=== PATIENT | male | born 1970 | race Hispanic/Latino ===

== ENCOUNTER 2016-12-02 18:15 | Emergency (ER) | payer MEDICAID ==
--- NOTE | 2016-12-02 19:51 | C.PDOC ---
History Of Present Illness 46 y/o male sent from [facility] to ED requesting detox from ETOH, Xanax and cocaine. Patient states he last used 3 days ago and denies any physical complaints at this time. Time Seen by Provider: 12/02/16 19:18 Chief Complaint (Nursing): Substance Abuse History Per: Patient History/Exam Limitations: no limitations Onset/Duration Of Symptoms: Days Current Symptoms Are (Timing): Still Present Suicide/Self Injury Attempted (Context): None Modifying Factor(s): Alcohol, Cocaine Past Medical History Reviewed: Historical Data, Nursing Documentation, Vital Signs Vital Signs: Last Vital Signs Temp 98.1 F 12/02/16 18:30 Pulse 89 12/02/16 18:30 Resp 20 12/02/16 18:30 BP 126/84 12/02/16 18:30 Pulse Ox 96 12/02/16 21:33 - Medical History PMH: Anxiety, Depression, Seizures Surgical History: No Surg Hx Family History: States: No Known Family Hx - Social History Hx Alcohol Use: No Hx Substance Use: Yes - Immunization History Hx Tetanus Toxoid Vaccination: No Hx Influenza Vaccination: No Hx Pneumococcal Vaccination: No Review Of Systems Except As Marked, All Systems Reviewed And Found Negative. Constitutional: Negative for: Fever, Chills Cardiovascular: Negative for: Chest Pain Respiratory: Negative for: Shortness of Breath Gastrointestinal: Negative for: Nausea, Vomiting Skin: Negative for: Rash Neurological: Negative for: Weakness, Numbness Physical Exam - Physical Exam Appears: Other (Anxious, Tremulous) Skin: Normal Color, Warm, Dry, No Rash Head: Atraumatic, Normacephalic Eye(s): bilateral: Normal Inspection, EOMI Oral Mucosa: Moist Neck: Normal ROM, Supple Chest: Symmetrical Cardiovascular: Rhythm Regular, No Murmur Respiratory: Normal Breath Sounds, No Rales, No Rhonchi, No Wheezing Gastrointestinal/Abdominal: Soft, No Tenderness, No Guarding, No Rebound Extremity: Normal ROM, Capillary Refill (<2 second) Neurological/Psych: Oriented x3 ED Course And Treatment - Laboratory Results Result Diagrams: 12/02/16 19:52 12/02/16 19:52 Lab Interpretation: Abnormal (cocaine only +) O2 Sat by Pulse Oximetry: 96 (RA) Pulse Ox Interpretation: Normal Progress Note: Depakote 500 mg, Librium 50 mg PO Reevaluation Time: 21:31 Reassessment Condition: Improved - Physician Consult Information Outcome Of Conversation: seen by Crisis Evaluators- does not meet critera for Detox adm Medical Decision Making Medical Decision Makin:Discussed with Crisis and beds are available [id number]: safe for d/c. Disposition Doctor Will See Patient In The: Office Counseled Patient/Family Regarding: Studies Performed, Diagnosis - Disposition Referrals: [facility] [Outside] [facility] [Outside] [facility] [Outside] [facility] [Outside] Disposition: HOME/ ROUTINE Disposition Time: 21:32 Condition: GOOD Additional Instructions: follow-up with outpatient services as described. Prescriptions: Gabapentin 300 mg PO BID #14 capsule Levetiracetam [Keppra] 500 mg PO BID #30 tablet Instructions: Cocaine Abuse (ED) Forms: [employer] (Algerian) - Clinical Impression Clinical Impression: Drug dependence, Cocaine abuse - Scribe Statement The provider has reviewed the documentation as recorded by the Calibjatin Pink All medical record entries made by the Calibjatin were at my direction and personally dictated by me. I have reviewed the chart and agree that the record accurately reflects my personal performance of the history, physical exam, medical decision making, and the department course for this patient. I have also personally directed, reviewed, and agree with the discharge instructions and disposition.
[2016-12-02 19:55] LABS: HEMATOCRIT 37.9 % (35.0-51.0); WHITE BLOOD COUNT 8.2 K/uL (4.8-10.8)
[2016-12-02 19:56] LABS: BASO % 0.4 % (0.0-2.0); EOS % 0.1 % (0.0-4.0); LYMPH # 2.7 K/uL (1.0-4.3); LYMPH % 32.9 % (20.0-40.0); MEAN CELL VOLUME 98.2 fL (80.0-94.0); MEAN CORPUSCULAR HEMOGLOBIN 33.9 pg (27.0-31.0); MEAN CORPUSCULAR HGB CONC 34.5 g/dL (33.0-37.0); MEAN PLATELET VOLUME 9.4 fL (7.2-11.7); MONO # 0.5 K/uL (0.0-0.8); MONO % 6.1 % (0.0-10.0); RED CELL DISTRIBUTION WIDTH 14.3 % (11.5-14.5)
[2016-12-02 20:02] LABS: RBC URINE 3 /hpf (0-3); URINE BACTERIA RARE (<OCC); URINE BILIRUBIN NEGATIVE (NEGATIVE); URINE BLOOD NEGATIVE (NEGATIVE); URINE CALCIUM OXALATE CRYSTALS MANY /hpf (<OCC); URINE COLOR Yellow (YELLOW); URINE GLUCOSE (UA) NORMAL (Normal); URINE KETONE TRACE mg/dL (NEGATIVE); URINE LEUKOCYTE ESTERASE NEG Leu/uL (Negative); URINE PROTEIN NEGATIVE (NEGATIVE); WBC URINE 3 /hpf (0-5)
[2016-12-02 20:19] LABS: CHLORIDE 109 mmol/L (98-107); SODIUM 140 mmol/L (132-148)
[2016-12-02 20:20] LABS: POTASSIUM 4.3 mmol/L (3.6-5.2)
[2016-12-02 20:21] LABS: GFR AFRICAN-AMERICAN > 60
[2016-12-02 20:22] LABS: ALB/GLOB RATIO 1.2 (1.0-2.1); ALKALINE PHOSPHATASE 36 U/L (38-126); ALT/SGPT 15 U/L (21-72); AST/SGOT 20 U/L (17-59); BILIRUBIN,TOTAL 0.4 mg/dL (0.2-1.3); BLOOD UREA NITROGEN 21 mg/dL (9-20); CALCIUM 9.2 mg/dl (8.6-10.4); CARBON DIOXIDE 19 mmol/L (22-30); GLUCOSE,RANDOM 145 mg/dL (75-110); TOTAL PROTEIN 7.8 g/dL (6.3-8.3)
[2016-12-02 20:23] LABS: ALCOHOL SERUM < 10 mg/dl (0-10)
[2016-12-03 03:21] VITALS: PULSE 60; RESP 18
[2016-12-03 06:40] VITALS: BP 108/64; TEMP 97.8; O2SAT 99
== END 2016-12-03 06:55 | disposition home or self-care (01) ==
LOC: C.ER 18:15
DX: F19.20 Other psychoactive substance dependence, uncomplicated (principal); F14.10 Cocaine abuse, uncomplicated